=== PATIENT | male | born 1970 | race Caucasian/White ===

== ENCOUNTER 2024-07-23 18:14 | Emergency (ER) | payer MEDICAID, SELFPAY ==
[2024-07-23 18:15] VITALS: BP 135/82; PULSE 84; RESP 17; TEMP 36.4; O2SAT 99; BMI 20.4
--- NOTE | 2024-07-23 18:30 | RAD_ITS ---
STUDY: X-RAY - LEFT HAND REASON FOR EXAM: Male, 54 years old. fall TECHNIQUE: 3 view(s) of the hand. COMPARISON: None. FINDINGS: Normal radiocarpal articulation. Normal distal radioulnar joint. Normal visualized carpal bones. Normal carpal articulations Normal carpometacarpal articulation of the thumb. Normal second through fifth carpometacarpal joints. Angulated comminuted fracture fifth metacarpal. Normal metacarpophalangeal joint of the thumb. Normal interphalangeal joint of the thumb. Normal proximal and distal phalanges of the thumb. Normal metacarpophalangeal joints of the second through fifth fingers. Subluxation fifth PIP joint ulnar deviation of the little finger. Hyper extension PIP joint and flexion of the DIP joint. Possible intra-articular nondisplaced fracture at the base of the fifth middle phalanx. Normal phalanges of the second through fifth fingers. The soft tissue structures are unremarkable. RAD/Hand Min 3 Views IMPRESSION: Fracture fifth metacarpal. Subluxation fifth PIP joint and possible fracture middle phalanx. Electronically Signed: Subhash Thornton MD at 19:57 EDT ,
--- NOTE | 2024-07-23 18:30 | RAD_ITS ---
STUDY: X-RAY - LEFT WRIST REASON FOR EXAM: Male, 54 years old. Fall TECHNIQUE: 3 view(s) of the wrist were obtained. COMPARISON: None. FINDINGS: Normal visualized distal radius and ulna. Normal radiocarpal articulation. Normal distal radioulnar articulation. Normal carpal bones. Normal carpal articulations. Normal carpometacarpal articulation of the thumb. Normal second through fifth carpometacarpal articulations. Fracture fifth metacarpal. Linear lucency noted within the capitate or navicular. On the lateral projection of the wrist. The soft tissue structures are unremarkable. RAD/Wrist min 3 Views IMPRESSION: Fracture fifth metacarpal. Possible nondisplaced fracture of the capitate and navicular bone. Electronically Signed: Subhash Thornton MD at 20:02 EDT ,
--- NOTE | 2024-07-23 19:44 | EX.ED.UPPERE ---
HPI History of Present Illness Chief Complaint: Upper Extremity Injury Informant: patient Narrative Narrative: 54-year-old male was walking outside and accidentally tripped into some nearby grass. He did not injure himself but he was upset so he punched into the grass and accidentally hit a sprinkler head, injuring his hand. He has pain in the lateral left hand. He has a deformity of the fifth digit that he states is chronic and not new from this injury. No other injuries. Stable PFSH PFSH Allergy/AdvReac Type Severity Reaction Status Date / Time No Known Allergies Allergy Verified 07/23/24 18:15 Social History Smoking Status: Current every day smoker tobacco type: cigarettes ROS ROS ED Constitutional Constitutional ED: Denies chills or fever(s) Musculoskeletal Musculoskeletal: Reports extremity pain; Denies neck pain Integumentary Denies Abrasions, rash or wounds Neurologic Neurologic: Denies paresthesias or weakness EXAM Physical Exam Const Vital Signs: 07/23/24 18:15 Temperature 97.5 F L Temperature Source Temporal Pulse Rate 84 Respiratory Rate 17 Blood Pressure 135/82 H Blood Pressure Mean 99 Pulse Ox 99 Oxygen Delivery Method Room Air Positive well nourished and well developed General Appearance ED: well developed and NAD Neck full ROM and supple Back/Spine normal ROM and normal to inspection Extremity Extremity Narrative: Swelling ecchymosis tenderness to the distal aspect of the left fifth metacarpal. 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 No other injuries. Skin intact over the injury of the fifth metacarpal. Neuro oriented x3, no focal motor deficits and no sensory deficits noted Sensorium / Orientation: alert Psych mental status grossly normal and thought process normal Skin no wounds Rashes: no rashes MDM MDM MDM Narrative Medical decision making narrative: Three-view x-ray of the left hand my interpretation shows a mildly angulated but mostly nondisplaced distal left fifth metacarpal fracture. Patient splinted, reduced to anatomic alignment, and he will follow-up with Ortho. Procedures Upper Extremity Splints Upper Extremity Splint: Orthoglass and Ulnar gutter Splint Fabrication: Fabricated Location: Left (NVID after placement) Other Procedures Procedure(s): Closed reduction angulated left fifth metacarpal fracture: After splinting and obtaining informed consent from the patient verbally, manual manipulation with a palpable and audible feedback was obtained/performed, neurovascularly intact distally after procedure. Postreduction x-rays 2 views of my interpretation show anatomic alignment and improvement. Discharge Plan Triage Chief Complaint: Upper Extremity Injury ED Provider: Vitaliy Senior Dx/Rx/DC Orders Clinical Impression: Closed fracture of fifth metacarpal bone of left hand Instructions: ED Boxer Fracture Primary Care Provider: Care Physician,No Primary Referrals: Jh Marrufo DO [Med Staff - Active Staff] - (Call for appointment) Print Language: Malaysian Disposition Disposition: Home, Self Care
--- NOTE | 2024-07-23 20:20 | RAD_ITS ---
STUDY: X-RAY - LEFT HAND REASON FOR EXAM: Male, 54 years old. postreduction -- portable TECHNIQUE: 2 view(s) of the hand. COMPARISON: 6:27 PM today. FINDINGS: Ulnar gutter fiberglass splint obscures detail. Normal radiocarpal articulation. Normal distal radioulnar joint. Normal visualized carpal bones. Normal carpal articulations Normal carpometacarpal articulation of the thumb. Normal second through fifth carpometacarpal joints. Improved alignment fifth metacarpal fracture. Normal metacarpophalangeal joint of the thumb. Normal interphalangeal joint of the thumb. Normal proximal and distal phalanges of the thumb. Normal metacarpophalangeal joints of the second through fifth fingers. PIP joint fifth digit improved in alignment. Previously suspected middle phalanx fracture appears less conspicuous. Normal phalanges of the second through fifth fingers. The soft tissue structures are unremarkable. RAD/Hand 2 Views IMPRESSION: Improved alignment as above. Detail obscured by new ulnar gutter fiberglass splint. Electronically Signed: Subhash Thornton MD at 20:54 EDT ,
[2024-07-23 20:53] VITALS: BP 135/82; PULSE 84; RESP 17; TEMP 36.4; O2SAT 99
== END 2024-07-23 20:54 | disposition home or self-care (01) ==
PROVIDERS: Emergency Provider Emergency Medicine; Visit Provider Emergency Medicine
DX: S62.367A Nondisplaced fracture of neck of fifth metacarpal bone, left hand, initial encounter for closed fracture (principal); F17.210 Nicotine dependence, cigarettes, uncomplicated; X58.XXXA Exposure to other specified factors, initial encounter
CPT/HCPCS: 73110; 73120; 73130; 99282

== ENCOUNTER 2024-08-12 11:26 | Day surgery (SDC) | payer MEDICAID, SELFPAY ==
[2024-08-12] VITALS (9 sets, daily range): BP systolic 111–138; BP diastolic 70–89; PULSE 61–75; RESP 12–16; TEMP 36.2–37.2; O2SAT 97–99; BMI 19.7
[2024-08-12] MEDS: Lactated Ringers 1,000 ML 15 ML IV (12:01)
--- NOTE | 2024-08-12 12:10 | PCM.PRE.AN2 ---
ASA Classification* ASA Classification ASA Classification: 2 Assessment & Plan Anesthesia* Anesthesia Assessment Anesthesia Assessment: Discussed sedation and/or anesthesia options, risks, benefits, and alternatives with patient/parents/legal guardian/POA. Questions invited. The patient/parents/legal guardian/POA seems to understand and agrees to proceed with anesthesia plan. Reviewed the physical assessment, medical history, allergy history and patient home medications list prior to surgery/procedure/anesthetic and documented any changes. Performed airway and anesthesia risk assessments. Anesthesia Type Anesthesia Type: General Anesthesia Focused Assessment* Temperature: 99 F Pulse Rate: 75 Blood Pressure: 138/89 Respiratory Rate: 16 Pulse Ox: 99 Airway Assessment Mouth opens: >3 cm Mallampati Score: II Focused Labs Anesthesia Preop lab: CBC CHEMISTRY COAG Pre-Assessment Diagnosis/Proposed Procedure Planned Operative Procedure(s): LEFT FIFTH METACARPAL OPEN REDUCTION INTERNAL FIXATION Anesthesia History Anesthesia History - commercial credit officer: Anesthesia History - commercial credit officer Hx Hospitalization No 08/08/24 11:06 Any Problems With Anesthesia No: NO SURGERY HX 08/08/24 11:06 Cholinesterase deficiency No 08/08/24 11:06 You/Your Family Experience No 08/08/24 11:06 fever (hyperthermia) with Relationship Recent Exposure to Contagious No 08/12/24 11:44 Disease Does patient have nerve No 08/08/24 11:06 stimulator Patient instructed to have device shut off --Does patient have Pacemaker No 08/12/24 11:44 or ICD? When Was Last Pacemaker Check QUESTION #4 FULL TEXT: You/Your Family Experience fever (hyperthermia) with Anesthesia Last Oral Intake Last Oral intake: Last Oral Intake NPO since 09:00 08/12/24 11:44 Meds taken in AM with sips of No 08/12/24 11:44 water? Meds patient instructed to take am of surgery PONV PONV - commercial credit officer: PONV - commercial credit officer Female No 08/08/24 11:06 HX of Motion Sickness No 08/08/24 11:06 HX of N/V After Surgery No 08/08/24 11:06 Non-Smoker No 08/08/24 11:06 Duration of Surgery greater Yes 08/08/24 11:06 than 60 minutes Number of Risk Factors 1 08/08/24 11:06 PONV Score Low Risk 08/08/24 11:06 Height & Weight Height & Weight: Anesthesia: Height & Weight Height 6 ft 08/12/24 11:44 Weight: 66 kg 08/12/24 11:44 Body Mass Index (BMI) 19.7 08/12/24 11:44 Respiratory Assessment Respiratory Assessment - commercial credit officer: Respiratory Tract Infection Hx - commercial credit officer Hx Respiratory Tract Infection No 08/08/24 11:06 STOP Sleep Apnea STOP Sleep Apnea - commercial credit officer: STOP Sleep Apnea - commercial credit officer Hx Hypertension No 08/08/24 11:06 Hx Sleep Apnea No 08/08/24 11:06 CPAP BIPAP Do you snore loudly (louder No 08/08/24 11:06 than talking or can be heard Do you often feel tired/ No 08/08/24 11:06 fatigued/ sleepy during daytime? Has anyone observed you stop No 08/08/24 11:06 breathing during sleep? STOP Results Negative 08/08/24 11:06 QUESTION #5 FULL TEXT : Do you snore loudly (louder than talking or can be heard through closed doors)? Tobacco Use History Tobacco Use History - commercial credit officer: Tobacco Use History - commercial credit officer Tobacco Use Smoking Status Current every day smoker 08/08/24 11:06 Hx Tobacco Use Yes 08/08/24 11:06 Years Smoking Packs Smoked per Day Smoking Cessation Date was within the last 15 years Hx Smoking Cessation Date Hx Smoking Cessation Counseling Hematologic Medial History Hematologic Hx - commercial credit officer: Hematologic Medical Hx - authorization coordinator Hx of Blood Transfusion No 08/08/24 11:06 Hx of Transfusion in last 3 No 08/08/24 11:06 Months Date of Last Transfusion (if within last 3 months) Ever experience any problems No 08/08/24 11:06 with transfusion(s)? Specify any problems Hx of Preganancy in last 3 N/A 08/08/24 11:06 Months Nurse Filling Out Transfusion DSCHRIBER 08/08/24 11:06 & Questions: Date: 08/08/24 08/08/24 11:06 Time: 11:07 08/08/24 11:06 Patient unable to answer at this time (ie. confused, unrespo /Reproduction History /Reproductive History - commercial credit officer: /Reproductive Hx- commercial credit officer Hx Now No 08/08/24 11:06 Gestational Age (in weeks): EDC: Hx Hx Para Hx Section SAB No 08/08/24 11:06 Active Medications Active Medications: Current Medications Generic Name Dose Route Start Last Admin Trade Name Freq PRN Reason Stop Dose Admin Cefazolin Sodium 2 gm/ N/A 20 mls @ 400 mls/hr 08/12/24 13:00 IV 08/12/24 13:02 PREOP ONE Lactated Ringer's 1,000 mls @ 15 mls/hr 08/12/24 11:45 08/12/24 12:01 IV 08/18/24 01:04 15 mls/hr .Q48H BERNICE Administration Protocol [facility] Medical History Marijuana use Heartburn Bleb, lung Leg cramps Smoker Home Medications ?Medication ?Instructions ?Recorded ?Last Taken ?Type naproxen 500 mg tablet 500 mg PO Q8H PRN pain 08/08/24 Unknown History Allergy/AdvReac Type Severity Reaction Status Date / Time No Known Allergies Allergy Verified 08/12/24 11:43 Surgical History No history of previous surgery Social History Smoking Status: Current every day smoker tobacco type: cigarettes alcohol intake: never Review of Systems (Anesthesia) ROS Narrative System reviewed and no additional complaints, except as documented.
--- NOTE | 2024-08-12 12:32 | RAD_ITS ---
INDICATION: LEFT FIFTH METACARPAL OPEN REDUCTION INTERNAL FIXATION EXAMINATION/TECHNIQUE: X-RAY - LEFT XR Hand 2 Views 24 VIEWS COMPARISON: Prior study dated: 07/26/2024 FINDINGS: Fluoroscopic images of the left hand were obtained intraoperatively for open reduction internal fixation of fracture of the fifth metacarpal. Surgical screw is seen traversing the fifth metacarpal securing the fracture site. Images were obtained for documentation only. Fluoroscopy time: 51 seconds. Number of fluoroscopic images: 11. Radiation dose: 0.825 mGy. RAD/Hand 2 Views IMPRESSION: Intraoperative exam as described above. Electronically Signed: Dallas Keyes MD at 15:49 EST ,
--- NOTE | 2024-08-12 12:41 | HP.PCM_ITS ---
HPI - General HPI Narrative JOHN DYER, is a 54 M who presents for left 5th metacarpal fracture ORIF. left hand marked. no changes to h and p. ok to proceed. rab post op instructions and narcotic counselling. no further questions or concern. MR#: [id number] Acct: [id number] Name: JOHN DYER Rep #: [id number] : 1970 Provider: Dr. Henry Rondon MD Age/Sex: 54/M Location: [facility] [place] Status: Signed Intake Vital Signs 07/23/2418:15 07/26/2413:42 Height 6 ft 6 ft Intake Visit Reasons: LEFT HAND Accompanied by: Self Is patient in pain?: No Allergies No Known Allergies Allergy (Verified 07/26/24 13:43) Medications ?Medication ?Instructions ?Recorded ?Confirmed ?Type NK 07/26/24 07/26/24 History PFSH Social History (Updated 07/26/24 @ 13:43 by Arlet Marvin) Smoking Status: Current every day smoker tobacco type: cigarettes alcohol intake: never HPI LEFT HAND Details: This documentation accurately reflects the service provided and the decisions made by me, Dr. Henry Rondon MD 07/26/24 1033. Part of today?s visit was documented by [ ], acting as scribe. JOHN DYER is a 54 year old M here today for 3 days FU L 5th MC fracture, CR in the ED 3 days ago. smokes 3/4 PPD. LHD. works at [employer]. splinted. closed reduction and casting. per ED 54-year-old male was walking outside and accidentally tripped into some nearby grass. He did not injure himself but he was upset so he punched into the grass and accidentally hit a sprinkler head, injuring his hand. He has pain in the lateral left hand. He has a deformity of the fifth digit that he states is chronic and not new from this injury. No other injuries. Stable Supplemental Info [facility] [address] [place] [address] Hand Min 3 Views MR#: [id number] Acct: [id number] Name: JOHN DYER Rep #: [id number] : 1970 M 54 From: Subhash Thornton MD PCP: Care Physician,No Primary Status: REG ER Study: Hand Min 3 Views Date of Exam: 07/23/24 Exam# [id number] Ordering Dr: Vitaliy Senior MD STUDY: X-RAY - LEFT HAND REASON FOR EXAM: Male, 54 years old. fall TECHNIQUE: 3 view(s) of the hand. COMPARISON: None. FINDINGS: Normal radiocarpal articulation. Normal distal radioulnar joint. Normal visualized carpal bones. Normal carpal articulations Normal carpometacarpal articulation of the thumb. Normal second through fifth carpometacarpal joints. Angulated comminuted fracture fifth metacarpal. Normal metacarpophalangeal joint of the thumb. Normal interphalangeal joint of the thumb. Normal proximal and distal phalanges of the thumb. Normal metacarpophalangeal joints of the second through fifth fingers. Subluxation fifth PIP joint ulnar deviation of the little finger. Hyper extension PIP joint and flexion of the DIP joint. Possible intra-articular nondisplaced fracture at the base of the fifth middle phalanx. Normal phalanges of the second through fifth fingers. The soft tissue structures are unremarkable. RAD/Hand Min 3 Views IMPRESSION: Fracture fifth metacarpal. Subluxation fifth PIP joint and possible fracture middle phalanx. Electronically Signed: Subhash Thornton MD at 19:57 EDT , [facility] [address] [place] [address] Hand 2 Views MR#: [id number] Acct: [id number] Name: JOHN DYER Rep #: [id number] : 1970 54 From: Subhash Thornton MD PCP: Care Physician,No Primary Status: [facility] ER Study: Hand 2 Views Date of Exam: 07/23/24 Exam# [id number] Ordering Dr: Vitaliy Senior MD STUDY: X-RAY - LEFT HAND REASON FOR EXAM: Male, 54 years old. postreduction -- portable TECHNIQUE: 2 view(s) of the hand. COMPARISON: 6:27 PM today. FINDINGS: Ulnar gutter fiberglass splint obscures detail. Normal radiocarpal articulation. Normal distal radioulnar joint. Normal visualized carpal bones. Normal carpal articulations Normal carpometacarpal articulation of the thumb. Normal second through fifth carpometacarpal joints. Improved alignment fifth metacarpal fracture. Normal metacarpophalangeal joint of the thumb. Normal interphalangeal joint of the thumb. Normal proximal and distal phalanges of the thumb. Normal metacarpophalangeal joints of the second through fifth fingers. PIP joint fifth digit improved in alignment. Previously suspected middle phalanx fracture appears less conspicuous. Normal phalanges of the second through fifth fingers. The soft tissue structures are unremarkable. RAD/Hand 2 Views IMPRESSION: Improved alignment as above. Detail obscured by new ulnar gutter fiberglass splint. Electronically Signed: Subhash Thornton MD at 20:54 EDT Reading Location ID and State: [facility] / [place] Tel , Service support , I independently reviewed the imaging. Concur with radiologist report. Repeat x-rays taken today 3 views of the left hand show repeat dorsal angulation up to 40 degrees of the midshaft metacarpal fracture Coding Level of Care Code Off vis,new,level 4 Diagnoses Closed fracture of fifth metacarpal bone of left hand S62.307A Assessment and Plan Assessment and Plan (1) Closed fracture of fifth metacarpal bone of left hand: Status: Acute Plan: JOHN DYER is a 54 year old M here today for 3 days FU L 5th MC fracture. This appears to be unstable despite close reduction and splinting. There is a moderate amount of dorsal angulation of the fracture. We went over the pros and cons risk benefits of continued nonoperative management reviewed close reduction versus open reduction internal fixation. My preferred treatment here would be intramedullary variable pitch screw fixation. Pros cons risk benefits these these methods were discussed most likely to have persistent malunion at the fracture site without surgery that being said surgery has risks of damage to the extensor tendon extensor mechanism of the finger osteoarthritis delayed or nonunion. I counseled the patient that smoking is a risk factor for surgery infection as well as delayed or nonunions. He should quit or cut back he smokes up to three quarters of a pack of cigarettes a day. For now we will switch him to a removable brace and the patient elected for left fifth metacarpal open reduction internal fixation. I will try to get this done of next week he understands no further questions or concerns. Pros and cons risks and benefits were discussed with the patient including but not limited to infection, pain, stiffness, bleeding, damage to surrounding structures, neurovascular injury, recurrence or retear, failure or wear of hardware or fixation, instability, fracture, deep vein thrombosis and pulmonary embolism, anesthetic risks, , patient dissatisfaction, need for further surgery and other risks. Patient understood and wished to proceed with surgery, and signed the informed consent documentation. Orders: Orders Hand Min 3 Views Today S62.307A - Unspecified fracture of fifth metacarpal bone, left hand, initial encounter for closed fracture Ortho Exam General General: Yes no acute distress Neurologic: Yes alert and Yes oriented x3 Psychologic: Yes reasonable and appropriate Right Wrist/Hand Skin/Wound: Yes Swelling and Yes Ecchymosis Left Wrist/Hand Skin/Wound: Yes CDI, Yes Swelling, Yes Ecchymosis, Yes nail intact, Yes capillary refill normal and No erythema Left Wrist: Yes ROM-Extension 0-60, Yes ROM-Flexion 0-80, Yes ROM-Pronation 0- 80, Yes ROM-Supination 0-90 and Yes TTP Fracture site; No Thenar Atrophy and No Hypothenar Atrophy Motor: EPL: 4, FDP-2: 4, 1st Dorsal Interosseous: 4 and APB: 4 Sensation: Radial: I, Ulnar: I and Median: I WRIST: no crossing over of digits, able to flex and extend the digits PFSH Medical History Marijuana use Heartburn Bleb, lung Leg cramps Smoker Home Medications ?Medication ?Instructions ?Recorded ?Last Taken ?Type naproxen 500 mg tablet 500 mg PO Q8H PRN pain 08/08/24 Unknown History Allergy/AdvReac Type Severity Reaction Status Date / Time No Known Allergies Allergy Verified 08/12/24 11:43 Surgical History No history of previous surgery Social History Smoking Status: Current every day smoker tobacco type: cigarettes alcohol intake: never Vital Signs Vital Signs Vital Signs: 08/12/24 11:44 08/12/24 11:44 08/12/24 12:11 Temperature 99 F 99 F Temperature Source Temporal Pulse Rate 75 75 Respiratory Rate 16 16 Respiratory Pattern Normal Blood Pressure 138/89 H 138/89 H Blood Pressure Mean 105 Blood Pressure Source Monitor Blood Pressure Position Semi-Fowlers Blood Pressure Location Left Arm Pulse Ox 99 99 Oxygen Delivery Method Room Air Weight Weight: 145 lb 8.081 oz Body Mass Index (BMI) 19.7
[2024-08-12] MEDS: Cefazolin 2 GM in Syringe IV (12:45)
--- NOTE | 2024-08-12 13:33 | OP.PCM_ITS ---
Problems Associated Problem List Diagnoses (1) Closed fracture of fifth metacarpal bone of left hand: Operative Report (Standard) Operative Information Surgery/Procedure Performed: Left 5th metacarpal ORIF Surgeon: Henry Rondon Date of Procedure: 08/12/24 Procedure Start Time: 13:03 Procedure Stop Time: 13:32 Pre-Operative Diagnosis: Left 5th metacarpal fracture Post-Operative Diagnosis: same Select all DRAINS/GRAFTS/IMPLANTS that apply: Implanted device Implanted device details: IM screw arthrex headless compression 2.5mm diameter 44mm length Type of Anesthesia: General and Local Estimated Blood Loss: 5 Specimen collected: No Description of surgery: Patient brought to the operating room theater. Placed supine on the table. General anesthesia induced. 2 g IV Ancef administered prior to the start of the procedure. All bony prominences padded. SCDs on the legs. Arm table to the patient's left upper extremity. Tourniquet applied to left upper extremity appropriately padded 18 inches. Upper extremity prepped and draped in the usual sterile fashion chlorhexidine based solution allowing over 3 minutes drying time prior to draping. Bed turned 90 degrees. Preoperative timeout performed to confirm the site patient and the surgery. Began by elevating the limb inflated the tourniquet to 250 mmHg. Made a small 1 cm incision at the fifth metacarpal head more towards the radial side. Carried the dissection down through skin and subcutaneous tissue achieving meticulous hemostasis. Capsule incised on the radial side retracted this as well as the extensor tendon ulnarly. Protected this identified the metacarpal head. Took intraoperative radiographs AP and lateral to confirm appropriate reduction of the fracture site which was still mobile. I used the Arthrex headless compression screw set. I passed the guidewire in the center of the metacarpal head slightly dorsally down the medullary shaft across the fracture site with the fracture in good alignment. This measured approximately 50 mm in length therefore I elected 44 mm long screw with the Arthrex headless compression screw 2.5 mm in diameter that looked like it had good fill at the isthmus. I passed the screw, good purchase. Buried the head end of the screw at the metacarpal head, took final radiographs AP lateral and oblique to ensure good alignment length and filling of the diaphysis. K wire removed final radiographs taken and saved onto the system. Tourniquet let down hemostasis achieved. Thorough irrigation performed using normal saline. Capsule closed with 3-0 Vicryl sutures and skin with horizontal mattress 3-0 Ethilon suture. 3 cc of quarter percent bupivacaine instilled in around the incision site and doing a digital block with that. Incision cleaned with wet dry dressing followed location of Adaptic 4 x 4 gauze cast padding and an ulnar gutter's fiberglass prefabricated splint wrist based at the wrist slightly in extension in the metacarpals at 80 degrees of flexion and overwrapped loosely with Nikita wrap. Patient woken up from the general anesthetic transferred off the operating table and taken postanesthetic care unit in stable condition. All sponge needle instrument counts were correct no complications plan for the patient discharged home according to day surgery criteria and follow-up in the office in 2 to 3 days time. cpt 49275 Surgical Findings: 5th metacarpal fracture Piece Maker stripper cutter machine: Yes Glass Checker: [email or web address] Tasks completed by maintenance assistant: Retracting Additional executive assistant to general counsel?: No Complications Complications: No Admit VTE Documentation VTE Present on Admission: No VTE Mechan Device Prophylaxis: SCD's VTE Pharm Prophylaxis ordered?: No Reason prophylaxis not ordered: Treatment Not Indicated Procedures Musculoskeletal [id number]: Other Procedure See Report
--- NOTE | 2024-08-12 13:40 | PCM.POST.ANE ---
Anesthesia: Postop Eval I Current Vital Signs Temperature: 97.2 F Pulse Rate: 61 Blood Pressure: 111/73 Respiratory Rate: 12 Pulse Ox: 97 Oxygen Delivery Method: Room Air Assessment Airway patent: Yes Spontaneous unlabored respirations: Yes Mental status: Asleep nausea: No Vomiting: No Anesthesia Complication: No Fluid Hydration Crystalloid volume administer (ml): 500 Total IV fluid infused: 500 Progress Note Anesthesia document: Postop Eval 1 completed: Yes
--- NOTE | 2024-08-12 13:41 | EX.PCM.DISCH ---
Discharge Instructions Diet Discharge Diet: No restrictions Activity Ice area for (Minutes): 10 Weight Bearing Status: No weight bearing Keep extremity elevated above heart level: Operative Extremity Dressing / Incision Call your doctor if your incision/area has: Continuous Slow Oozing, Sudden Increased Bleeding, Increased Pain/ Swelling, Increased Redness, Foul Smelling Discharge and Swelling at the incision site Call your doctor if you observe: Fever of 101 or Higher, Coldness, Increased Pain and Numbness or Tingling Change Dressing in: leave in place till F/U Cleanse incision/area with: Do not get Incision Wet Follow Up Care Please Follow Up With: Henry Rondon MD When: 2-3 days Test Results: Test results from this visit will be discussed in further detail at your follow-up appointment, if applicable. Discharge Plan Admission Attending Provider: Henry Rondon Primary Care Provider: Care Physician,Anayeli Primary Instructions Print Language: Panamanian Discharge Orders/Prescriptions Prescriptions: New oxycodone-acetaminophen [Endocet] 5-325 mg tablet 1 tab PO Q8H MDD 4 PRN (Reason: pain) 3 Days Qty: 7 0RF No Action naproxen 500 mg tablet 500 mg PO Q8H PRN (Reason: pain) Referrals / Follow Up: Henry Rondon MD [Med Staff - Active Staff] - Care Physician,No Primary [Primary Care Provider] - Disposition Disposition (needs filled in before D/C Order can be placed): Home, Self Care
--- NOTE | 2024-08-12 13:54 | POSTOPAN2_ITS ---
Anesthesia Postop Eval I Sum Postop Eval Completion status Anesthesia document: Postop Eval 1 completed: Yes Anesthesia Postop Eval I Summary Anesthesia Postop Eval I Summary: Anesthesia Postop Eval I: Assessment Summary Airway patent Yes 08/12/24 13:41 [email or web address] Spontaneous unlabored Yes 08/12/24 13:41 [email or web address] respirations Mental status Asleep 08/12/24 13:41 [email or web address] nausea No 08/12/24 13:41 [email or web address] Vomiting No 08/12/24 13:41 [email or web address] Anesthesia Postop Eval I: Fluid Summary Crystalloid volume administer 500 08/12/24 13:41 [email or web address] (ml) Colloids volume administered ( ml) Blood Product volume administered (ml) Total IV fluid infused 500 08/12/24 13:41 [email or web address] Anesthesia Postop Eval I: Summary Notes Anesthesia Complication No 08/12/24 13:41 [email or web address] Anesthesia Complication Comment: Post-operative progress note Anesthesia: Postop Eval II Evaluation Mental status: Awake Pain Level: 0 nausea: No Vomiting: No
--- NOTE | 2024-08-12 13:54 | PCM.POSTANE2 ---
Anesthesia Postop Eval I Sum Postop Eval Completion status Anesthesia document: Postop Eval 1 completed: Yes Anesthesia Postop Eval I Summary Anesthesia Postop Eval I Summary: Anesthesia Postop Eval I: Assessment Summary Airway patent Yes 08/12/24 13:41 TELEVISION PRODUCTION [email or web address] Spontaneous unlabored Yes 08/12/24 13:41 TELEVISION PRODUCTION [email or web address] respirations Mental status Asleep 08/12/24 13:41 TELEVISION PRODUCTION [email or web address] nausea No 08/12/24 13:41 TELEVISION PRODUCTION [email or web address] Vomiting No 08/12/24 13:41 TELEVISION PRODUCTION [email or web address] Anesthesia Postop Eval I: Fluid Summary Crystalloid volume administer 500 08/12/24 13:41 TELEVISION PRODUCTION [email or web address] (ml) Colloids volume administered ( ml) Blood Product volume administered (ml) Total IV fluid infused 500 08/12/24 13:41 TELEVISION PRODUCTION [email or web address] Anesthesia Postop Eval I: Summary Notes Anesthesia Complication No 08/12/24 13:41 TELEVISION PRODUCTION [email or web address] Anesthesia Complication Comment: Post-operative progress note Anesthesia: Postop Eval II Evaluation Mental status: Awake Pain Level: 0 nausea: No Vomiting: No
== END 2024-08-12 14:57 | disposition home or self-care (01) ==
LOC: SDC 11:27 → AC 11:29
PROVIDERS: Referring Provider Orthopaedic Surgery Sports Medicine; Visit Provider Orthopaedic Surgery Sports Medicine
PROC: (CPT 26615; principal; 2024-08-12 12:45)
DX: S62.327A Displaced fracture of shaft of fifth metacarpal bone, left hand, initial encounter for closed fracture (principal); F17.210 Nicotine dependence, cigarettes, uncomplicated; X58.XXXA Exposure to other specified factors, initial encounter
CPT/HCPCS: 26615; 01830; 73120; 76000; C1713; J7120